=== PATIENT | male | born 1990 | race Caucasian/White ===

== ENCOUNTER 2022-02-04 07:21 | Emergency (ER) | payer OTHER ==
[2022-02-04] MEDS ORDERED: ERYTHROMYCIN O3.5 GM OU (07:45)
== END 2022-02-04 07:52 | disposition home or self-care (01) ==
LOC: ER1 07:21
DX: S05.01XA Injury of conjunctiva and corneal abrasion without foreign body, right eye, initial encounter (principal); F17.200 Nicotine dependence, unspecified, uncomplicated; X58.XXXA Exposure to other specified factors, initial encounter
CPT/HCPCS: 99283